=== PATIENT | male | born 1990 | race Caucasian/White ===

== ENCOUNTER 2020-01-29 07:42 | Emergency (ER) | payer OTHER, MEDICAID ==
[~2020-01-29] VITALS: Ht 170.2 cm; Wt 59.0 kg
--- NOTE | 2020-01-29 07:45 | NUR ---
BIBA to bed 09
[2020-01-29 07:48] VITALS: BP 120/75
[2020-01-29 07:51] VITALS: BP 120/75
--- NOTE | 2020-01-29 08:17 | NUR ---
Patient discharged with v/s stable. Written and verbal after care instructions given and explained. Patient verbalized understanding. Ambulatory with steady gait. All questions addressed prior to discharge. Advised to follow up with PMD.
== END 2020-01-29 08:17 | disposition home or self-care (01) ==
LOC: MED 07:42
DX: R55 Syncope and collapse (principal); F41.9 Anxiety disorder, unspecified; F90.9 Attention-deficit hyperactivity disorder, unspecified type; F17.210 Nicotine dependence, cigarettes, uncomplicated; F12.90 Cannabis use, unspecified, uncomplicated; Z98.890 Other specified postprocedural states
CPT/HCPCS: 99281